=== PATIENT | male | born 1950 | race Caucasian/White ===

== ENCOUNTER 2019-03-11 11:38 | Day surgery (SDC) | payer MEDICARE, BC ==
[2019-03-11] MEDS ORDERED: Depo-Medrol 40 MG/ML IM ONE (11:39)
[2019-03-11] MEDS ORDERED: Xylocaine-Mpf 2% 5 Ml Vial IJ ONE (11:39)
[2019-03-11] MEDS ORDERED: DIPRIVAN 200 MG/20 ML IV ONE (14:00)
[2019-03-11] MEDS ORDERED: Ketamine HCl 50 MG/ML ONE (14:00)
--- NOTE | 2019-03-11 14:55 | XRAY ---
Indication: Bilateral L4-S1 MBB. Intraoperative fluoroscopy was provided for 8 seconds. Single digital spot image submitted for interpretation demonstrates posterior needle tips projecting over the expected course of the left and right L4-S1 nerve roots. Correlate with intraoperative findings/report.
--- NOTE | 2019-03-11 16:28 | XRAY ---
8 seconds fluoroscopy time in surgery for bilateral L4-S1 MBB.
[2019-03-11] MEDS ORDERED: Lactated Ringers 1,000 ML IV ONE (18:22)
== END 2019-03-11 14:30 ==
LOC: SDC-PAIN 11:38
PROVIDERS: ATTEND Psychiatry & Neurology Pain Medicine
DX: M47.816 Spondylosis without myelopathy or radiculopathy, lumbar region (principal); Z79.899 Other long term (current) drug therapy; J44.9 Chronic obstructive pulmonary disease, unspecified; Q61.3 Polycystic kidney, unspecified; F41.8 Other specified anxiety disorders
CPT/HCPCS: 64493; 64494; 72020; 77002; J2704

== ENCOUNTER 2019-04-15 12:34 | Day surgery (SDC) | payer MEDICARE, BC ==
[2019-04-15] MEDS ORDERED: Marcaine 0.5% SDV 10 ML IJ ONE (12:35)
[2019-04-15] MEDS ORDERED: Depo-Medrol 40 MG/ML IM ONE (12:35)
[2019-04-15] MEDS ORDERED: DIPRIVAN 200 MG/20 ML IV ONE (13:42)
[2019-04-15] MEDS ORDERED: Ketamine HCl 50 MG/ML ONE (13:42)
--- NOTE | 2019-04-15 15:39 | XRAY ---
Indication: Bilateral L4-S1 MBB. Intraoperative fluoroscopy was provided 6 seconds. Single digital spot image submitted for interpretation demonstrates posterior needle tips projecting over the expected course of the left and right L4-S1 nerve roots. Correlate with intraoperative findings/report.
--- NOTE | 2019-04-15 15:43 | XRAY ---
6 seconds fluoroscopy time in surgery for bilateral L4-S1 MBB.
[2019-04-15] MEDS ORDERED: Lactated Ringers 1,000 ML IV ONE (16:03)
== END 2019-04-15 14:15 | disposition home or self-care (01) ==
LOC: SDC-PAIN 12:34
PROVIDERS: ATTEND Psychiatry & Neurology Pain Medicine
DX: M47.816 Spondylosis without myelopathy or radiculopathy, lumbar region (principal); M06.9 Rheumatoid arthritis, unspecified; J44.9 Chronic obstructive pulmonary disease, unspecified; M16.0 Bilateral primary osteoarthritis of hip; F41.8 Other specified anxiety disorders; Z79.899 Other long term (current) drug therapy
CPT/HCPCS: 64493; 64494; 72020; 77002; J1030; J2704

== ENCOUNTER 2019-05-20 09:08 | Day surgery (SDC) | payer MEDICARE, BC ==
[2019-05-20] MEDS ORDERED: Marcaine 0.5% SDV 10 ML IJ ONE (09:09)
[2019-05-20] MEDS ORDERED: Xylocaine 1% Vial 30 ML PF IJ ONE (09:09)
[2019-05-20] MEDS ORDERED: Depo-Medrol 40 MG/ML IM ONE (09:09)
[2019-05-20] MEDS ORDERED: Ketamine HCl 50 MG/ML ONE (10:37)
[2019-05-20] MEDS ORDERED: DIPRIVAN 200 MG/20 ML IV ONE (10:37)
--- NOTE | 2019-05-20 11:57 | XRAY ---
Indication: Left L4-S1 RFA. Intraoperative fluoroscopy was provided for 17 seconds. 3 digital spot images submitted for interpretation demonstrates posterior needle tips projecting over the expected course of the left L4-S1 nerve roots. Correlate with intraoperative findings/report.
--- NOTE | 2019-05-20 13:06 | XRAY ---
17 seconds fluoroscopy time in surgery for left L4-S1 RFA.
[2019-05-20] MEDS ORDERED: Lactated Ringers 1,000 ML IV ONE (13:31)
== END 2019-05-20 11:10 | disposition home or self-care (01) ==
LOC: SDC-PAIN 09:08
PROVIDERS: ATTEND Psychiatry & Neurology Pain Medicine
DX: M47.816 Spondylosis without myelopathy or radiculopathy, lumbar region (principal); J44.9 Chronic obstructive pulmonary disease, unspecified; F41.8 Other specified anxiety disorders; M16.0 Bilateral primary osteoarthritis of hip; M17.0 Bilateral primary osteoarthritis of knee; Z79.899 Other long term (current) drug therapy
CPT/HCPCS: 64635; 64636; 72100; 77002; J1030; J2001; J2704

== ENCOUNTER 2019-05-27 13:22 | Day surgery (SDC) | payer MEDICARE, BC ==
[2019-05-27] MEDS ORDERED: Marcaine 0.5% SDV 10 ML IJ ONE (13:23)
[2019-05-27] MEDS ORDERED: Xylocaine 1% Vial 30 ML PF IJ ONE (13:23)
[2019-05-27] MEDS ORDERED: Depo-Medrol 40 MG/ML IM ONE (13:23)
[2019-05-27] MEDS ORDERED: DIPRIVAN 200 MG/20 ML IV ONE (14:50)
[2019-05-27] MEDS ORDERED: Ketamine HCl 50 MG/ML ONE (14:51)
[2019-05-27] MEDS ORDERED: Lactated Ringers 1,000 ML IV ONE (15:42)
--- NOTE | 2019-05-27 16:24 | XRAY ---
Indication: Right L4-S1 RFA. Intraoperative fluoroscopy was provided for 17 seconds. 3 digital spot images submitted for interpretation demonstrates posterior needle tips projecting over the expected course of the right L4-S1 nerve roots. Correlate with intraoperative findings/report.
--- NOTE | 2019-05-27 16:44 | XRAY ---
17 seconds fluoroscopy time in surgery for right L4-S1 RFA.
== END 2019-05-27 15:27 | disposition home or self-care (01) ==
LOC: SDC-PAIN 13:22
PROVIDERS: ATTEND Psychiatry & Neurology Pain Medicine
DX: M47.816 Spondylosis without myelopathy or radiculopathy, lumbar region (principal); J44.9 Chronic obstructive pulmonary disease, unspecified; Q61.3 Polycystic kidney, unspecified; F41.8 Other specified anxiety disorders
CPT/HCPCS: 64635; 64636; 72100; 77002; J1030; J2001; J2704